=== PATIENT | female | born 1990 | race Caucasian/White ===

== ENCOUNTER 2019-09-11 21:12 | Emergency (ER) | payer OTHER, SELFPAY ==
[~2019-09-11] VITALS: Ht 172.7 cm; Wt 68.0 kg
[2019-09-11 21:36] VITALS: Ht 172.7 cm; Wt 68.0 kg
[2019-09-11 21:38] VITALS: BP 142/79
== END 2019-09-11 21:38 | disposition home or self-care (01) ==
LOC: ED 21:12
DX: J06.9 Acute upper respiratory infection, unspecified (principal); Z20.828 Contact with and (suspected) exposure to other viral communicable diseases
CPT/HCPCS: U0003-CS